=== PATIENT | male | born 1950 | race Caucasian/White ===

== ENCOUNTER 2019-05-01 11:12 | Inpatient (IN) ==
[2019-05-01] MEDS ORDERED: cefTRIAXone 1,000 MG in SODIUM CHLORIDE 0.9% 100 ML IV STA (11:34)
[2019-05-01] MEDS ORDERED: methylPREDNISolone SOD SUC 125 MG/2 ML VIAL IV STA (11:34)
[2019-05-01 11:51] LABS: Basophils % 0.2 % (0.0-0.8)
[2019-05-01 11:56] LABS: Hematocrit 36.7 VOL% (42.0-52.0); Hemoglobin 11.1 GM/DL (14.0-18.0); Immature Granulocytes % 0.3 %; Immature Granulocytes Absolute 0.04 #; Lymphocytes # 0.4 10*3/uL (1.4-4.0); Lymphocytes % 3.4 % (21.2-54.2); Mean Corpuscular HGB Conc 30.2 GM/DL (32-36); Mean Corpuscular Volume 86.2 FL (87-102); Mean Platelet Volume 11.7 FL (9.6-12.0); Monocytes % 8.6 % (1.7-12.7); Neutrophils % 87.5 % (38.7-73.9); Platelet Count 191 T/CUMM (130-400); Red Blood Count 4.26 MC/CUMM (3.8-5.5); Red Cell Distribution Width 14.6 % (9.3-17.3); White Blood Count 12.9 T/CUMM (4-12)
[2019-05-01 12:08] LABS: Albumin 3.9 G/DL (3.4-5.0); Bilirubin,Total 0.4 MG/DL (0.2-1.0); Osmolality,Calculated 270.1 MOS/KG (273-304); Total Protein 7.4 G/DL (6.4-8.3)
[2019-05-01] MEDS: ALBUTEROL 2.5 MG/3 ML NEB RESP TX SCH (12:12)
[2019-05-01 12:15] LABS: Band Neutrophils 5 % (0-10); Hypochromasia 2+; Lymphocytes 2 % (20-55); Segmented Neutrophils 83 % (50-85); Total Cells Counted 100
[2019-05-01 12:15] LABS: ABG HCO3 33.8 MMOL/L (20-26); ABG Oxygen Saturation 99.3 % (95-100)
[2019-05-01 12:20] LABS: ABG PH 7.164 (7.35-7.45)
[2019-05-01] MEDS ORDERED: SODIUM BICARBONATE 50 MEQ/50 ML VIAL IV STA (13:06)
[2019-05-01 13:32] LABS: ABG Base Excess 14.7 MMOL/L (-2.5-2.5); ABG HCO3 38.4 MMOL/L (20-26); ABG PH 7.337 (7.35-7.45); ABG PO2 59.2 MM HG (80-95); ABG TCO2 40.4 MMOL/L (23-27)
[2019-05-01 13:41] LABS: ABG PCO2 83.5 MM HG (35-48)
[2019-05-01] MEDS ORDERED: ONDANSETRON 4 MG/2 ML VIAL IV PRN (14:01)
[2019-05-01] MEDS ORDERED: ACETAMINOPHEN 325 MG TABLET PO PRN (14:01)
[2019-05-01] MEDS ORDERED: ALBUTEROL 2.5 MG/3 ML NEB RESP TX PRN (15:00)
[2019-05-01] MEDS: LEVOFLOXACIN INJ 750 MG in PREMIX 1 EACH IV SCH (16:24)
[2019-05-01] MEDS: SODIUM CHLORIDE 0.45% 1,000 ML IV SCH (16:24)
[2019-05-01 16:44] LABS: Apearance,Urine CLEAR (Clear); Bacteria,Urine Occasional /HPF (Few); Bilirubin,Urine Negative (Negative); Blood, Urine Negative (Negative); Glucose,Urine (UA) Negative (Negative); Hyaline Casts,Urine 3 /LPF (0-3); Ketones,Urine 5 mg/dL (Negative); Mucus,Urine Occasional /LPF (Occasional); Nitrite,Urine Negative (Negative); Protein,Urine 30 MG/DL; RBC,Urine 2 /HPF (0-4); Squamous Epithelial Cell,Urine Occasional /HPF (0-10); Urine Color Yellow (Yellow); Urine Specific Gravity 1.014 (1.001-1.035); Urine Urobilinogen < 2.0 EU/DL (0.2-1.0); WBC,Urine 1 /HPF (0-6)
[2019-05-01] MEDS: ALBUTEROL/IPRATROPIUM 3 ML NEB RESP TX SCH (20:09)
[2019-05-01] MEDS: MIRTAZAPINE 30 MG TABLET PO SCH (21:09)
[2019-05-01] MEDS: ENOXAPARIN 40 MG/0.4 ML SYRINGE SUBCUT SCH (21:09)
[2019-05-01] MEDS: DOCUSATE SODIUM 100 MG CAPSULE PO SCH (21:10)
[2019-05-01] MEDS: methylPREDNISolone SOD SUC 40 MG/1 ML VIAL IV SCH (21:10)
[2019-05-01] MEDS: BUDESONIDE/FORMOTEROL 160-4.5 INHALER 6 GM INH SCH (21:12)
[2019-05-02] MEDS: ALBUTEROL/IPRATROPIUM 3 ML NEB RESP TX SCH ×5 (01:15→23:40)
[2019-05-02] MEDS: methylPREDNISolone SOD SUC 40 MG/1 ML VIAL IV SCH ×4 (03:19→23:13)
[2019-05-02] MEDS: SODIUM CHLORIDE 0.45% 1,000 ML IV SCH ×2 (03:36→06:38)
[2019-05-02] MEDS: IPRATROPIUM 500 MCG/2.5 ML NEB RESP TX SCH ×3 (06:09→15:42)
[2019-05-02 07:46] LABS: Basophils % 0.1 % (0.0-0.8); Hematocrit 35.9 VOL% (42.0-52.0); Hemoglobin 10.8 GM/DL (14.0-18.0); Immature Granulocytes % 0.5 %; Immature Granulocytes Absolute 0.06 #; Lymphocytes # 0.4 10*3/uL (1.4-4.0); Lymphocytes % 3.4 % (21.2-54.2); Mean Corpuscular HGB Conc 30.1 GM/DL (32-36); Mean Corpuscular Volume 87.1 FL (87-102); Mean Platelet Volume 12.3 FL (9.6-12.0); Monocytes % 8.4 % (1.7-12.7); Neutrophils % 87.6 % (38.7-73.9); Platelet Count 175 T/CUMM (130-400); Red Blood Count 4.12 MC/CUMM (3.8-5.5); Red Cell Distribution Width 14.7 % (9.3-17.3); White Blood Count 11.4 T/CUMM (4-12)
[2019-05-02 08:00] LABS: Hypochromasia 1+; Lymphocytes 5 % (20-55); Platelet Estimate Adequate; Segmented Neutrophils 87 % (50-85); Total Cells Counted 100
[2019-05-02 08:04] LABS: Calcium 9.2 MG/DL (8.5-10.1); Osmolality,Calculated 272.8 MOS/KG (273-304)
[2019-05-02 08:14] LABS: Risk Ratio 1.81
[2019-05-02] MEDS: DOCUSATE SODIUM 100 MG CAPSULE PO SCH ×2 (08:44→23:12)
[2019-05-02] MEDS: CALCIUM (CARBONATE)/VITAMIN D 600 MG-400 UNIT TABLET PO SCH (08:46)
[2019-05-02] MEDS: BUDESONIDE/FORMOTEROL 160-4.5 INHALER 6 GM INH SCH ×2 (08:47→21:40)
[2019-05-02] MEDS: ROFLUMILAST 500 MCG TABLET PO SCH (08:48)
[2019-05-02] MEDS: MULTIVITAMIN (CENTRUM) TABLET PO SCH (08:48)
[2019-05-02] MEDS: PANTOPRAZOLE 40 MG TABLET PO SCH (08:48)
[2019-05-02] MEDS: TAMSULOSIN 0.4 MG CAPSULE PO SCH (08:48)
[2019-05-02] MEDS: THEOPHYLLINE ER (24 HR) 400 MG CAPSULE PO SCH (08:48)
[2019-05-02] MEDS: cefTRIAXone 1,000 MG in SYRINGE 1 EACH IV SCH (10:27)
[2019-05-02] MEDS ORDERED: LORazepam 2 MG/1 ML VIAL IV ONE (12:54)
[2019-05-02] MEDS: LEVOFLOXACIN INJ 750 MG in PREMIX 1 EACH IV SCH (14:19)
[2019-05-02] MEDS ORDERED: methylPREDNISolone SOD SUC 40 MG/1 ML VIAL IV ONE (14:27)
[2019-05-02] MEDS ORDERED: ALBUTEROL/IPRATROPIUM 3 ML NEB RESP TX ONE (14:27)
[2019-05-02] MEDS ORDERED: FUROSEMIDE 40 MG/4 ML VIAL IV ONE (14:53)
[2019-05-02] MEDS ORDERED: flumazeniL 0.5 MG/5 ML VIAL IV ONE (15:12)
[2019-05-02] MEDS: MIRTAZAPINE 30 MG TABLET PO SCH (21:40)
[2019-05-02] MEDS: ENOXAPARIN 40 MG/0.4 ML SYRINGE SUBCUT SCH (23:12)
[2019-05-03] MEDS: ALBUTEROL/IPRATROPIUM 3 ML NEB RESP TX SCH ×6 (01:07→21:15)
[2019-05-03] MEDS: MORPHINE 4 MG/1 ML VIAL IV PRN ×3 (01:30→23:19)
[2019-05-03 05:28] LABS: Basophils % 0.1 % (0.0-0.8); Hematocrit 40.3 VOL% (42.0-52.0); Hemoglobin 12.3 GM/DL (14.0-18.0); Immature Granulocytes % 0.4 %; Immature Granulocytes Absolute 0.04 #; Lymphocytes # 0.4 10*3/uL (1.4-4.0); Lymphocytes % 3.2 % (21.2-54.2); Mean Corpuscular HGB Conc 30.5 GM/DL (32-36); Mean Corpuscular Volume 85.6 FL (87-102); Mean Platelet Volume 12.3 FL (9.6-12.0); Monocytes % 10.7 % (1.7-12.7); Neutrophils % 85.6 % (38.7-73.9); Platelet Count 199 T/CUMM (130-400); Red Blood Count 4.71 MC/CUMM (3.8-5.5); Red Cell Distribution Width 14.9 % (9.3-17.3); White Blood Count 11.4 T/CUMM (4-12)
[2019-05-03 05:33] LABS: Calcium 9.4 MG/DL (8.5-10.1); Osmolality,Calculated 278.7 MOS/KG (273-304)
[2019-05-03] MEDS: methylPREDNISolone SOD SUC 40 MG/1 ML VIAL IV SCH ×4 (05:52→22:06)
[2019-05-03 06:06] LABS: Band Neutrophils 1 % (0-10); Lymphocytes 5 % (20-55); Segmented Neutrophils 85 % (50-85); Total Cells Counted 100
[2019-05-03 06:07] LABS: Hypochromasia 2+; Platelet Estimate Adequate
[2019-05-03] MEDS: MULTIVITAMIN (CENTRUM) TABLET PO SCH (09:08)
[2019-05-03] MEDS: BUDESONIDE/FORMOTEROL 160-4.5 INHALER 6 GM INH SCH ×2 (09:09→20:49)
[2019-05-03] MEDS: THEOPHYLLINE ER (24 HR) 400 MG CAPSULE PO SCH (09:09)
[2019-05-03] MEDS: DOCUSATE SODIUM 100 MG CAPSULE PO SCH ×2 (09:09→20:48)
[2019-05-03] MEDS: CALCIUM (CARBONATE)/VITAMIN D 600 MG-400 UNIT TABLET PO SCH (09:09)
[2019-05-03] MEDS: PANTOPRAZOLE 40 MG TABLET PO SCH (09:09)
[2019-05-03] MEDS: ROFLUMILAST 500 MCG TABLET PO SCH (09:09)
[2019-05-03] MEDS: cefTRIAXone 1,000 MG in SYRINGE 1 EACH IV SCH (09:09)
[2019-05-03] MEDS: TAMSULOSIN 0.4 MG CAPSULE PO SCH (09:09)
[2019-05-03] MEDS: SPIRIVA INHALER INH SCH (09:40)
[2019-05-03] MEDS: IPRATROPIUM 500 MCG/2.5 ML NEB RESP TX SCH (11:49)
[2019-05-03] MEDS: LEVOFLOXACIN INJ 750 MG in PREMIX 1 EACH IV SCH (14:35)
[2019-05-03] MEDS: MIRTAZAPINE 30 MG TABLET PO SCH (20:48)
[2019-05-03] MEDS: ENOXAPARIN 40 MG/0.4 ML SYRINGE SUBCUT SCH (20:48)
[2019-05-04] MEDS: ALBUTEROL/IPRATROPIUM 3 ML NEB RESP TX SCH ×7 (00:32→23:32)
[2019-05-04] MEDS: MORPHINE 4 MG/1 ML VIAL IV PRN (01:16)
[2019-05-04] MEDS: methylPREDNISolone SOD SUC 40 MG/1 ML VIAL IV SCH ×3 (04:35→18:49)
[2019-05-04 05:13] LABS: Basophils % 0.1 % (0.0-0.8); Hematocrit 41.3 VOL% (42.0-52.0); Hemoglobin 12.5 GM/DL (14.0-18.0); Immature Granulocytes % 0.5 %; Immature Granulocytes Absolute 0.07 #; Lymphocytes # 0.3 10*3/uL (1.4-4.0); Lymphocytes % 2.2 % (21.2-54.2); Mean Corpuscular HGB Conc 30.3 GM/DL (32-36); Mean Corpuscular Volume 84.6 FL (87-102); Mean Platelet Volume 12.5 FL (9.6-12.0); Monocytes % 15.6 % (1.7-12.7); Neutrophils % 81.6 % (38.7-73.9); Platelet Count 208 T/CUMM (130-400); Red Blood Count 4.88 MC/CUMM (3.8-5.5); Red Cell Distribution Width 14.8 % (9.3-17.3); White Blood Count 14.5 T/CUMM (4-12)
[2019-05-04 05:27] LABS: Calcium 10.2 MG/DL (8.5-10.1); Osmolality,Calculated 278.2 MOS/KG (273-304)
[2019-05-04 05:55] LABS: Elliptocytes Few; Hypochromasia 1+; Lymphocytes 2 % (20-55); Nucleated Red Blood Cells 1 (0-5); Platelet Estimate Adequate; Segmented Neutrophils 83 % (50-85); Total Cells Counted 100
[2019-05-04] MEDS: THEOPHYLLINE ER (24 HR) 400 MG CAPSULE PO SCH (10:52)
[2019-05-04] MEDS: DOCUSATE SODIUM 100 MG CAPSULE PO SCH ×3 (10:52→20:57)
[2019-05-04] MEDS: TAMSULOSIN 0.4 MG CAPSULE PO SCH (10:52)
[2019-05-04] MEDS: ROFLUMILAST 500 MCG TABLET PO SCH (10:53)
[2019-05-04] MEDS: BUDESONIDE/FORMOTEROL 160-4.5 INHALER 6 GM INH SCH ×2 (11:00→20:56)
[2019-05-04] MEDS: SPIRIVA INHALER INH SCH (11:00)
[2019-05-04] MEDS: MULTIVITAMIN (CENTRUM) TABLET PO SCH (11:00)
[2019-05-04] MEDS: CALCIUM (CARBONATE)/VITAMIN D 600 MG-400 UNIT TABLET PO SCH (11:00)
[2019-05-04] MEDS: PANTOPRAZOLE 40 MG TABLET PO SCH (11:01)
[2019-05-04] MEDS: cefTRIAXone 1,000 MG in SYRINGE 1 EACH IV SCH (11:02)
[2019-05-04] MEDS: METOPROLOL TARTRATE 5 MG/5 ML VIAL IV SCH ×2 (12:46→19:37)
[2019-05-04] MEDS: LEVOFLOXACIN INJ 750 MG in PREMIX 1 EACH IV SCH (16:25)
[2019-05-04] MEDS: MIRTAZAPINE 30 MG TABLET PO SCH ×2 (20:55→20:57)
[2019-05-04] MEDS: ENOXAPARIN 40 MG/0.4 ML SYRINGE SUBCUT SCH (20:55)
[2019-05-05] MEDS: methylPREDNISolone SOD SUC 40 MG/1 ML VIAL IV SCH ×5 (00:40→23:44)
[2019-05-05] MEDS: ALBUTEROL/IPRATROPIUM 3 ML NEB RESP TX SCH ×6 (03:45→23:52)
[2019-05-05] MEDS: METOPROLOL TARTRATE 5 MG/5 ML VIAL IV PRN ×3 (04:31→21:23)
[2019-05-05 04:47] LABS: Basophils % 0.1 % (0.0-0.8); Hematocrit 41.8 VOL% (42.0-52.0); Hemoglobin 12.9 GM/DL (14.0-18.0); Immature Granulocytes % 0.7 %; Immature Granulocytes Absolute 0.14 #; Lymphocytes # 0.1 10*3/uL (1.4-4.0); Lymphocytes % 0.7 % (21.2-54.2); Mean Corpuscular HGB Conc 30.9 GM/DL (32-36); Mean Corpuscular Volume 83.9 FL (87-102); Mean Platelet Volume 12.8 FL (9.6-12.0); Monocytes % 8.5 % (1.7-12.7); Platelet Count 178 T/CUMM (130-400); Red Blood Count 4.98 MC/CUMM (3.8-5.5)
[2019-05-05 05:11] LABS: Calcium 9.7 MG/DL (8.5-10.1)
[2019-05-05 05:12] LABS: Osmolality,Calculated 278.7 MOS/KG (273-304)
[2019-05-05 05:19] LABS: Lymphocytes 1 % (20-55); Segmented Neutrophils 95 % (50-85); Total Cells Counted 100
[2019-05-05 05:20] LABS: Hypochromasia 1+; Platelet Estimate Adequate
[2019-05-05] MEDS: SPIRIVA INHALER INH SCH (10:54)
[2019-05-05] MEDS: TAMSULOSIN 0.4 MG CAPSULE PO SCH (10:55)
[2019-05-05] MEDS: DOCUSATE SODIUM 100 MG CAPSULE PO SCH ×2 (10:55→21:23)
[2019-05-05] MEDS: THEOPHYLLINE ER (24 HR) 400 MG CAPSULE PO SCH (10:55)
[2019-05-05] MEDS: cefTRIAXone 1,000 MG in SYRINGE 1 EACH IV SCH (10:55)
[2019-05-05] MEDS: ROFLUMILAST 500 MCG TABLET PO SCH (10:56)
[2019-05-05] MEDS: CALCIUM (CARBONATE)/VITAMIN D 600 MG-400 UNIT TABLET PO SCH (10:56)
[2019-05-05] MEDS: MULTIVITAMIN (CENTRUM) TABLET PO SCH (10:56)
[2019-05-05] MEDS: PANTOPRAZOLE 40 MG TABLET PO SCH (10:57)
[2019-05-05] MEDS: BUDESONIDE/FORMOTEROL 160-4.5 INHALER 6 GM INH SCH ×2 (11:37→21:23)
[2019-05-05] MEDS ORDERED: POTASSIUM CHLORIDE RIDER 10 MEQ in PREMIX 1 EACH IV PRN (12:53)
[2019-05-05] MEDS: LEVOFLOXACIN INJ 750 MG in PREMIX 1 EACH IV SCH (15:45)
[2019-05-05] MEDS ORDERED: PHENOL 1.4% THROAT SPRAY 177 ML BOTTLE PO PRN (18:42)
[2019-05-05] MEDS: MIRTAZAPINE 30 MG TABLET PO SCH (21:23)
[2019-05-05] MEDS: ENOXAPARIN 40 MG/0.4 ML SYRINGE SUBCUT SCH (21:32)
[2019-05-06] MEDS: ALBUTEROL/IPRATROPIUM 3 ML NEB RESP TX SCH ×6 (03:25→23:39)
[2019-05-06] MEDS: methylPREDNISolone SOD SUC 40 MG/1 ML VIAL IV SCH ×4 (04:18→22:56)
[2019-05-06 04:40] LABS: Basophils % 0.1 % (0.0-0.8); Hematocrit 39.2 VOL% (42.0-52.0); Hemoglobin 12.3 GM/DL (14.0-18.0); Immature Granulocytes % 0.5 %; Immature Granulocytes Absolute 0.09 #; Lymphocytes # 0.2 10*3/uL (1.4-4.0); Lymphocytes % 0.9 % (21.2-54.2); Mean Corpuscular HGB Conc 31.4 GM/DL (32-36); Mean Corpuscular Volume 84.1 FL (87-102); Monocytes % 6.6 % (1.7-12.7); Neutrophils % 91.9 % (38.7-73.9); Platelet Count 136 T/CUMM (130-400); Red Blood Count 4.66 MC/CUMM (3.8-5.5); Red Cell Distribution Width 14.6 % (9.3-17.3); White Blood Count 18.6 T/CUMM (4-12)
[2019-05-06 05:10] LABS: Blood Urea Nitrogen 22 MG/DL (7-18); Calcium 10.8 MG/DL (8.5-10.1); Estimated Glom Filtration Rate 93 ML/MIN; Glucose 215 MG/DL (74-106); Osmolality,Calculated 278.1 MOS/KG (273-304)
[2019-05-06 05:20] LABS: Band Neutrophils 2 % (0-10); Hypochromasia 1+; Lymphocytes 2 % (20-55); Platelet Estimate Adequate; Segmented Neutrophils 93 % (50-85); Total Cells Counted 100
[2019-05-06] MEDS: TAMSULOSIN 0.4 MG CAPSULE PO SCH (10:51)
[2019-05-06] MEDS: ROFLUMILAST 500 MCG TABLET PO SCH (10:51)
[2019-05-06] MEDS: CALCIUM (CARBONATE)/VITAMIN D 600 MG-400 UNIT TABLET PO SCH (10:51)
[2019-05-06] MEDS: PANTOPRAZOLE 40 MG TABLET PO SCH (10:51)
[2019-05-06] MEDS: MULTIVITAMIN (CENTRUM) TABLET PO SCH (10:51)
[2019-05-06] MEDS: DOCUSATE SODIUM 100 MG CAPSULE PO SCH ×2 (10:52→22:04)
[2019-05-06] MEDS: SPIRIVA INHALER INH SCH (10:52)
[2019-05-06] MEDS: THEOPHYLLINE ER (24 HR) 400 MG CAPSULE PO SCH (10:52)
[2019-05-06] MEDS: BUDESONIDE/FORMOTEROL 160-4.5 INHALER 6 GM INH SCH ×2 (10:54→22:04)
[2019-05-06] MEDS: cefTRIAXone 1,000 MG in SYRINGE 1 EACH IV SCH (10:55)
[2019-05-06] MEDS: METOPROLOL TARTRATE 5 MG/5 ML VIAL IV PRN (11:30)
[2019-05-06] MEDS: LEVOFLOXACIN INJ 750 MG in PREMIX 1 EACH IV SCH (15:11)
[2019-05-06] MEDS: MIRTAZAPINE 30 MG TABLET PO SCH (22:04)
[2019-05-06] MEDS: ENOXAPARIN 40 MG/0.4 ML SYRINGE SUBCUT SCH (22:04)
[2019-05-07] MEDS: ALBUTEROL/IPRATROPIUM 3 ML NEB RESP TX SCH ×6 (03:41→23:51)
[2019-05-07] MEDS: methylPREDNISolone SOD SUC 40 MG/1 ML VIAL IV SCH ×4 (04:31→20:08)
[2019-05-07] MEDS: METOPROLOL TARTRATE 5 MG/5 ML VIAL IV PRN (04:32)
[2019-05-07 06:12] LABS: Basophils % 0.1 % (0.0-0.8); Immature Granulocytes % 0.5 %; Lymphocytes # 0.3 10*3/uL (1.4-4.0); Lymphocytes % 1.5 % (21.2-54.2); Mean Corpuscular HGB Conc 29.5 GM/DL (32-36); Mean Platelet Volume 13.1 FL (9.6-12.0); Monocytes % 5.9 % (1.7-12.7); Platelet Count 118 T/CUMM (130-400); Red Cell Distribution Width 14.7 % (9.3-17.3); White Blood Count 21.8 T/CUMM (4-12)
[2019-05-07 06:58] LABS: Hematocrit 39.4 VOL% (42.0-52.0); Hemoglobin 11.7 GM/DL (14.0-18.0)
[2019-05-07 07:11] LABS: Blood Urea Nitrogen 19 MG/DL (7-18); Calcium 10.7 MG/DL (8.5-10.1); Estimated Glom Filtration Rate 94 ML/MIN; Glucose 140 MG/DL (74-106)
[2019-05-07 08:31] LABS: Band Neutrophils 3 % (0-10); Lymphocytes 1 % (20-55); Segmented Neutrophils 95 % (50-85); Total Cells Counted 100
[2019-05-07 08:32] LABS: Hypochromasia 2+; Platelet Estimate Adequate; Polychromasia Slight; Stomatocytes Slight
[2019-05-07] MEDS: CALCIUM (CARBONATE)/VITAMIN D 600 MG-400 UNIT TABLET PO SCH (09:21)
[2019-05-07] MEDS: PANTOPRAZOLE 40 MG TABLET PO SCH (09:21)
[2019-05-07] MEDS: MULTIVITAMIN (CENTRUM) TABLET PO SCH (09:21)
[2019-05-07] MEDS: TAMSULOSIN 0.4 MG CAPSULE PO SCH (09:21)
[2019-05-07] MEDS: DOCUSATE SODIUM 100 MG CAPSULE PO SCH ×2 (09:21→20:08)
[2019-05-07] MEDS: THEOPHYLLINE ER (24 HR) 400 MG CAPSULE PO SCH (09:21)
[2019-05-07] MEDS: ROFLUMILAST 500 MCG TABLET PO SCH (09:21)
[2019-05-07] MEDS: cefTRIAXone 1,000 MG in SYRINGE 1 EACH IV SCH (09:22)
[2019-05-07] MEDS: BUDESONIDE/FORMOTEROL 160-4.5 INHALER 6 GM INH SCH ×2 (09:22→20:11)
[2019-05-07] MEDS: SPIRIVA INHALER INH SCH (09:22)
[2019-05-07] MEDS: LEVOFLOXACIN INJ 750 MG in PREMIX 1 EACH IV SCH (15:12)
[2019-05-07] MEDS: MIRTAZAPINE 30 MG TABLET PO SCH (20:08)
[2019-05-07] MEDS: ENOXAPARIN 40 MG/0.4 ML SYRINGE SUBCUT SCH (20:09)
[2019-05-08] MEDS: ALBUTEROL/IPRATROPIUM 3 ML NEB RESP TX SCH ×6 (03:25→23:45)
[2019-05-08] MEDS: methylPREDNISolone SOD SUC 40 MG/1 ML VIAL IV SCH ×3 (05:56→21:38)
[2019-05-08] MEDS: CALCIUM (CARBONATE)/VITAMIN D 600 MG-400 UNIT TABLET PO SCH (09:31)
[2019-05-08] MEDS: cefTRIAXone 1,000 MG in SYRINGE 1 EACH IV SCH (09:31)
[2019-05-08] MEDS: TAMSULOSIN 0.4 MG CAPSULE PO SCH (09:31)
[2019-05-08] MEDS: MULTIVITAMIN (CENTRUM) TABLET PO SCH (09:31)
[2019-05-08] MEDS: SPIRIVA INHALER INH SCH (09:31)
[2019-05-08] MEDS: DOCUSATE SODIUM 100 MG CAPSULE PO SCH ×2 (09:31→21:38)
[2019-05-08] MEDS: BUDESONIDE/FORMOTEROL 160-4.5 INHALER 6 GM INH SCH ×2 (09:31→21:40)
[2019-05-08] MEDS: PANTOPRAZOLE 40 MG TABLET PO SCH (09:31)
[2019-05-08] MEDS: ROFLUMILAST 500 MCG TABLET PO SCH (09:31)
[2019-05-08] MEDS: THEOPHYLLINE ER (24 HR) 400 MG CAPSULE PO SCH (09:31)
[2019-05-08] MEDS: LEVOFLOXACIN INJ 750 MG in PREMIX 1 EACH IV SCH (15:09)
[2019-05-08] MEDS: ENOXAPARIN 40 MG/0.4 ML SYRINGE SUBCUT SCH (21:38)
[2019-05-08] MEDS: MIRTAZAPINE 30 MG TABLET PO SCH (21:38)
[2019-05-08] MEDS: MORPHINE 4 MG/1 ML VIAL IV PRN (21:39)
[2019-05-09] MEDS: MORPHINE 4 MG/1 ML VIAL IV PRN ×2 (00:23→03:21)
[2019-05-09] MEDS: ALBUTEROL/IPRATROPIUM 3 ML NEB RESP TX SCH ×4 (03:20→15:00)
[2019-05-09] MEDS: methylPREDNISolone SOD SUC 40 MG/1 ML VIAL IV SCH ×2 (03:21→13:09)
[2019-05-09 08:47] VITALS: BP 127/81
[2019-05-09] MEDS: DOCUSATE SODIUM 100 MG CAPSULE PO SCH (09:19)
[2019-05-09] MEDS: TAMSULOSIN 0.4 MG CAPSULE PO SCH (09:19)
[2019-05-09] MEDS: CALCIUM (CARBONATE)/VITAMIN D 600 MG-400 UNIT TABLET PO SCH (09:19)
[2019-05-09] MEDS: THEOPHYLLINE ER (24 HR) 400 MG CAPSULE PO SCH (09:19)
[2019-05-09] MEDS: PANTOPRAZOLE 40 MG TABLET PO SCH (09:19)
[2019-05-09] MEDS: MULTIVITAMIN (CENTRUM) TABLET PO SCH (09:19)
[2019-05-09] MEDS: BUDESONIDE/FORMOTEROL 160-4.5 INHALER 6 GM INH SCH (09:25)
[2019-05-09] MEDS: SPIRIVA INHALER INH SCH (09:25)
[2019-05-09] MEDS: ROFLUMILAST 500 MCG TABLET PO SCH (09:25)
[2019-05-09 10:21] LABS: Calcium 10.9 MG/DL (8.5-10.1); Osmolality,Calculated 268.2 MOS/KG (273-304)
[2019-05-09 10:31] LABS: Basophils % 0.1 % (0.0-0.8); Hematocrit 38.6 VOL% (42.0-52.0); Hemoglobin 11.8 GM/DL (14.0-18.0); Immature Granulocytes % 0.7 %; Immature Granulocytes Absolute 0.13 #; Lymphocytes # 0.7 10*3/uL (1.4-4.0); Lymphocytes % 3.5 % (21.2-54.2); Mean Corpuscular HGB Conc 30.6 GM/DL (32-36); Mean Corpuscular Volume 85.4 FL (87-102); Mean Platelet Volume 13.2 FL (9.6-12.0); Monocytes % 10.2 % (1.7-12.7); Neutrophils % 85.5 % (38.7-73.9); Platelet Count 100 T/CUMM (130-400); Red Blood Count 4.52 MC/CUMM (3.8-5.5); Red Cell Distribution Width 14.5 % (9.3-17.3); White Blood Count 19.5 T/CUMM (4-12)
[2019-05-09 10:59] LABS: Band Neutrophils 1 % (0-10); Hypochromasia 1+; Lymphocytes 4 % (20-55); Segmented Neutrophils 86 % (50-85); Total Cells Counted 100
[2019-05-09 11:00] LABS: Microcytosis 1+
[2019-05-09 11:01] LABS: Ovalocytes Slight; Platelet Estimate Decreased
[2019-05-09] MEDS: cefTRIAXone 1,000 MG in SYRINGE 1 EACH IV SCH (11:15)
== END 2019-05-09 15:55 | DRG 189 ==
LOC: N.ED 11:12 → N.EDINP 14:01 → N.TELEN 14:24
PROVIDERS: ADMIT Family Medicine; ATTEND Family Medicine